=== PATIENT | female | born 1995 | race Caucasian/White ===

== ENCOUNTER → 2017-01-07 | Outpatient (CLI) | payer MEDICAID ==
[~2017-01-07] MED LIST: BIRTH CONTROL PO; FLAGYL500 M1 FT; MACROBID 100MG100 MG PO; MACROBID100 M3 PO; PRENATAL PLUS1 TA1 PO
[2017-01-08 08:40] LABS: Hep B Surface Ab, Qual Non Reactive (.); Rubella Antibodies, IgG 4.03 index (Immune >0.99)
[2017-01-08 12:36] LABS: Mumps Abs, IgG >300.0 AU/mL (Immune >10.9); Varicella Zoster IgG 887 index (Immune >165)
== END ==
LOC: LAB 08:58 → UTC.OUT 08:58
PROVIDERS: Nurse Practitioner
DX: Z01.84 Encounter for antibody response examination (principal); Z11.59 Encounter for screening for other viral diseases

== ENCOUNTER 2017-04-29 17:58 | Emergency (ER) | payer MEDICAID ==
[~2017-04-29] VITALS: Ht 165.1 cm; Wt 86.2 kg
--- OUTSIDE RECORDS SUMMARY | 2017-04-29 18:05 | External Medical Summary Rpt | CCD ---
Author Author Conduent Organization Conduent Address Unknown Phone Unavailable Purpose Continuity of Care Document - through 2016
--- OUTSIDE RECORDS SUMMARY | 2017-04-29 18:05 | External Medical Summary Rpt | CCD ---
Author Author , CORRIE Organization CORRIE Address Unknown Phone [email or web address] Care Team Providers Care Electric Car Operator Name Role Phone Sharyn Calderon MD, Unavailable Unavailable Sharyn Calderon MD Purpose Continuity of Care Document - 10-13-2012 through 2016 Problems Code Diagnosis DOS Provider Status 599.0 599.0 URIN 10-13-2012 [facility] NOS 646.83 646.83 PREG 10-13-2012 [facility] T A59.9 TRICHOMONIA SIS, UNSPECIFIED N39.0 URINARY TRACT INFECTION, SITE NOT SPECIFIED O20.0 THREATENED T16.2XXA FOREIGN BODY IN LEFT EAR, INITIAL ENCOUNTER T16.9XXA FOREIGN BODY IN EAR, UNSPECIFIED EAR, INITIAL ENCOUNTER Z33.1 STATE, INCIDENTAL Z34.90 ENCNTR FOR SUPRVSN OF NORMAL , UNSP, UNSP TRIMESTER Allergies, Adverse Reactions, Alerts Type Drug Allergy Adverse Reaction to Substance Substance Reaction Severity Clindamycin I-HIVES Mild Amoxicillin I-HIVES Mild Clavulanic Acid I-HIVES Mild Medications Na ND Rx Da Fi Fi Am Da Di Ph RX Ph St me C No te ll ll ou ys ag ar # ys at rm s nt no ma ic us Or Da si cy ia de te s n re d Ni 00 05 0 No tr 09 -1 of 32 3- Lo ur 13 20 ng an 19 13 er to 3 in Ac ti 10 ve 0M G Ca ps ul e Vital Signs 10-13-2012 21:10 Name Value Interpretat Reference Comment ion Range Body 98.5 [degF] Temperature BP 59 mm[Hg] Diastolic BP Systolic 112 mm[Hg] Heart 97 /min Rate/Pulse O2% 99 % Respiratory 18 /min Rate 10-13-2012 20:53 Name Value Interpretat Reference Comment ion Range Heart 103 /min Rate/Pulse O2% 100 % Respiratory 22 /min Rate Results Labs Lab Lab Date Result Refere Interp Status Commen Order Detail nces retati t Range on CHLAMYDIA AND GONORRHEA TESTING (11-09-2014 11:30) Chlamyd POSITIV complet ia 015 E ed trachom 11:30 atis rRNA [Presen ce] in Unspeci fied specime n by Probe & target amplifi cation method Neisser NEGATIV complet ia 015 E ed gonorrh 11:30 oeae rRNA [Presen ce] in Unspeci fied specime n by Probe & target amplifi cation method CHLAMYDIA AND GONORRHEA TESTING (11-09-2014 11:30) COLLECT M.F. 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 ETHNICI WHITE, complet TY 015 NON-HIS ed 11:30 PANIC KIT complet EXPIRAT 015 5 ed ION 11:30 DATE SYMPTOM NO complet S 015 ed 11:30 REASON INITIAL complet FOR 015 FAMILY ed REQUEST 11:30 PLANNIN G VISIT SPECIME URINE complet N 015 ed SOURCE 11:30 PREGNAN NO complet T 015 ed 11:30 CHART 627-38- complet NUMBER [id number] ed 11:30 Chlamyd Pending complet ia 015 ed trachom 11:30 atis rRNA [Presen ce] in Unspeci fied specime n by Probe & target amplifi cation method Neisser Pending complet ia 015 ed gonorrh 11:30 oeae rRNA [Presen ce] in Unspeci fied specime n by Probe & target amplifi cation method B-HCG Ur Ql (10-13-2012 20:10) B-HCG POSITIV NEG complet Ur Ql 013 E ed 20:10 URINALYSIS/COMPLETE (10-13-2012 20:10) URINE YELLOW YELLOW complet COLOR 013 ed 20:10 URINE CLEAR CLEAR complet APPEARA 013 ed NCE 20:10 URINE NEGATIV NEG complet GLUCOSE 013 E ed - 20:10 DIPSTIC K URINE 05-13-2 NEGATIV NEG complet BILIRUB 013 E ed IN - 20:10 DIPSTIC K URINE 05-13-2 NEGATIV NEG complet KETONE 013 E mg/dL ed 20:10 URINE 05-13-2 1.010 1.005-1 complet SPECIFI 013 UNK .030 ed C 20:10 GRAVITY URINE 05-13-2 NEGATIV NEG complet BLOOD 013 E ed 20:10 URINE 05-13-2 6.0 UNK 5.0-8.5 complet PH 013 ed 20:10 URINE 05-13-2 NEGATIV NEG complet PROTEIN 013 E mg/dL ed - 20:10 DIPSTIC K URINE 05-13-2 0.2 NEG complet UROBILI 013 E.U./dL ed NOGEN - 20:10 DIPSTIC K URINE 05-13-2 NEGATIV NEG complet NITRATE 013 E ed - 20:10 DIPSTIC K URINE 05-13-2 3+ NEG complet LEUK 013 ed ESTERAS 20:10 E URINE 05-13-2 10-20 O complet WBC 013 wbc/hpf ed 20:10 URINE 05-13-2 3-8 0-5 complet SQUAMOU 013 #/hpf ed S CELLS 20:10 URINE 05-13-2 1+ O complet BACTERI 013 ed A 20:10 Encounters Encounter Start End Date Code Location Performer Type Date Emergency CLARISA Calderon MD (ER) 3 20:26 3 21:12 [facility]
--- OUTSIDE RECORDS SUMMARY | 2017-04-29 18:05 | External Medical Summary Rpt | CCD ---
Author Author , CORRIE Organization CORRIE Address Unknown Phone [email or web address] Care Team Providers Care Tile Molder Hand Name Role Phone Sharyn Calderon MD, Unavailable Unavailable Sharyn Calderon MD Purpose Continuity of Care Document - 10-13-2012 through 2016 Problems Code Diagnosis DOS Provider Status 599.0 599.0 URIN 10-13-2012 [facility] NOS 646.83 646.83 PREG 10-13-2012 [facility] T A59.9 TRICHOMONIA SIS, UNSPECIFIED N39.0 URINARY [...] M.F. 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
--- OUTSIDE RECORDS SUMMARY | 2017-04-29 18:06 | External Medical Summary Rpt | CCD ---
Author Author , CORRIE Mittal CORRIE Address Unknown Phone [email or web address] Immunization Name Date Rout CVX Reac Dose Comm Prov Is Faci e tion ent ider Refu lity Give sed n No 11-2 999 No Vacc 7-20 ine 17 Admi nist ered Tdap 08-2 115 999 Hist [place] No MI , 1-20 oric Adso 17 al rbed Info rmat ion - Sour ce Unsp ecif ied MMR 02-1 3 999 Hist H149 No H149 1-20 oric 15 al Info rmat ion - Sour ce Unsp ecif ied Tdap 01-0 115 999 Hist [place] No MI , 3-20 oric Adso 08 al rbed Info rmat ion - Sour ce Unsp ecif ied DTaP 01-0 107 999 Hist [place] No MI , UF 3-20 oric 07 al Info rmat ion - Sour ce Unsp ecif ied DTaP 08-0 107 999 Hist [place] No MI , UF 4-19 oric 98 al Info rmat ion - Sour ce Unsp ecif ied MMR 08-0 3 999 Hist MI No MI 4-19 oric 98 al Info rmat ion - Sour ce Unsp ecif ied Taurus 08-0 10 999 Hist [place] No MI o-IP 4-19 oric V 98 al Info rmat ion - Sour ce Unsp ecif ied DTaP 09-1 107 999 Hist MI No MI , UF 6-19 oric 95 al Info rmat ion - Sour ce Unsp ecif ied Taurus 09-1 10 999 Hist [place] No MI o-IP 6-19 oric V 95 al Info rmat ion - Sour ce Unsp ecif ied Hib, 09-1 17 999 Hist [place] No MI UF 6-19 oric 95 al Info rmat ion - Sour ce Unsp ecif ied MMR 10-0 3 999 Hist [place] No MI 7-19 oric 94 al Info rmat ion - Sour ce Unsp ecif ied Hep 05-0 8 999 Hist [place] No MI B, 6-19 oric ped/ 94 al adol Info rmat ion - Sour ce Unsp ecif ied DTaP 03-2 107 999 Hist [place] No MI , UF 5- oric 94 al Info rmat ion - Sour ce Unsp ecif ied Taurus 03-2 10 999 Hist [place] No MI o-IP 5-19 oric V 94 al Info rmat ion - Sour ce Unsp ecif ied Hib, 03-2 17 999 Hist [place] No MI UF 5- oric 94 al Info rmat ion - Sour ce Unsp ecif ied Hib, 01-1 17 999 Hist [place] No MI UF 3- oric 94 al Info rmat ion - Sour ce Unsp ecif ied DTaP 01-1 107 999 Hist [place] No MI , UF 3- oric 94 al Info rmat ion - Sour ce Unsp ecif ied [place] 01-1 10 999 Hist MI No MI o-IP 3- oric V 94 al Info rmat ion - Sour ce Unsp ecif ied Taurus 10-1 10 999 Hist [place] No MI o-IP 5- oric V 93 al Info rmat ion - Sour ce Unsp ecif ied Hep 10-1 8 999 Hist MI No MI B, 5- oric ped/ 93 al adol Info rmat ion - Sour ce Unsp ecif ied DTaP 10-1 107 999 Hist [place] No MI , UF 5- oric 93 al Info rmat ion - Sour ce Unsp ecif ied Hib, 10-1 17 999 Hist [place] No MI UF 5- oric 93 al Info rmat ion - Sour ce Unsp ecif ied Hep 08-2 8 999 Hist MI No MI B, 3- oric ped/ 93 al adol Info rmat ion - Sour ce Unsp ecif ied
--- OUTSIDE RECORDS SUMMARY | 2017-04-29 18:06 | External Medical Summary Rpt ---
Author Author CORRIE Jensen, CORRIE [employer] Organization [employer] Address Unknown Phone Unavailable Results CHLAMYDIA AND GONORRHEA TESTING Observa Value Referen Units Interpr Notes Date tion ce etation Range COLLECT M.F. No No No No Nov 09 OR BUI, informa informa informa informa 2015 ASSESSMENT COUNSELOR tion in tion in tion in tion in 11:30 source source source source AM data data data data ETHNICI WHITE, No No No No Nov 09 TY NON-HIS informa informa informa informa 2015 PANIC tion in tion in tion in tion in 11:30 source source source source AM data data data data KIT No No No No Nov 09 EXPIRAT 5 informa informa informa informa 2015 ION tion in tion in tion in tion in 11:30 DATE source source source source AM data data data data SYMPTOM NO No No No No Nov 09 S informa informa informa informa 2015 tion in tion in tion in tion in 11:30 source source source source AM data data data data REASON INITIAL No No No No Nov 09 FOR FAMILY informa informa informa informa 2015 REQUEST tion in tion in tion in tion in 11:30 PLANNIN source source source source AM G VISIT data data data data SPECIME URINE No No No No Nov 09 N informa informa informa informa 2015 SOURCE tion in tion in tion in tion in 11:30 source source source source AM data data data data PREGNAN NO No No No No Nov 09 T informa informa informa informa 2015 tion in tion in tion in tion in 11:30 source source source source AM data data data data CHART 627-38- No No No No Nov 09 NUMBER [id number] informa informa informa informa 2015 tion in tion in tion in tion in 11:30 source source source source AM data data data data Chlamyd POSITIV No No No NEGATIV Khoi 9 ia E informa informa informa E 2015 trachom tion in tion in tion in RESULT= 11:30 atis source source source WITHIN AM rRNA data data data NORMAL [Presen ce] in LIMITSP Unspeci OSITIVE fied specime RESULT= n by Probe & ABNORMA target LEQUIVO ARUNA amplifi RESULT= cation method INDETER MINATEU NSATISF ACTORY RESULT= INVALID Neisser NEGATIV No No No NEGATIV Nov 9 ia E informa informa informa E 2015 gonorrh tion in tion in tion in RESULT= 11:30 oeae source source source WITHIN AM rRNA data data data NORMAL [Presen ce] in LIMITSP Unspeci OSITIVE fied specime RESULT= n by Probe & ABNORMA target LEQUIVO ARUNA amplifi RESULT= cation method INDETER MINATEU NSATISF ACTORY RESULT= INVALID THE APTIMA COMBO 2 ASSAY IS NOT INTENDE D FOR THE EVALUAT ION OF SUSPECT EDSEXUA L ABUSE OR FOR OTHER MEDICO- LEGAL INDICAT IONS. FOR THOSE PATIENT S FORWHOM A FALSE POSITIV E RESULT MAY HAVE ADVERSE PSYCHO- SOCIAL IMPACT, [facility] MMENDS RETESTI NG.\.br \This report contain s patient informa tion that must be protect ed in accorda nce with the Health Insuran ce Portabi lity and Account ability Act. CHLAMYDIA AND GONORRHEA TESTING Observa Value Referen Units Interpr Notes Date tion ce etation Range COLLECT M.F. No No No No Nov 09 OR BUI, informa informa informa informa 2015 ASSESSMENT COUNSELOR tion in tion in tion in tion in 11:30 source source source source AM data data data data ETHNICI WHITE, No No No No Nov 09 TY NON-HIS informa informa informa informa 2015 PANIC tion in tion in tion in tion in 11:30 source source source source AM data data data data KIT No No No No Nov 09 EXPIRAT 5 informa informa informa informa 2015 ION tion in tion in tion in tion in 11:30 DATE source source source source AM data data data data SYMPTOM NO No No No No Nov 09 S informa informa informa informa 2015 tion in tion in tion in tion in 11:30 source source source source AM data data data data REASON INITIAL No No No No Nov 09 FOR FAMILY informa informa informa informa 2015 REQUEST tion in tion in tion in tion in 11:30 PLANNIN source source source source AM G VISIT data data data data SPECIME URINE No No No No Nov 09 N informa informa informa informa 2015 SOURCE tion in tion in tion in tion in 11:30 source source source source AM data data data data PREGNAN NO No No No No Nov 09 T informa informa informa informa 2015 tion in tion in tion in tion in 11:30 source source source source AM data data data data CHART 627-38- No No No No Nov 09 NUMBER [id number] informa informa informa informa 2015 tion in tion in tion in tion in 11:30 source source source source AM data data data data Chlamyd Pending No No No No Nov 09 ia informa informa informa informa 2015 trachom tion in tion in tion in tion in 11:30 atis source source source source AM rRNA data data data data [Presen ce] in Unspeci fied specime n by Probe & target amplifi cation method Neisser Pending No No No \.br\Nov 09 ia informa informa informa is 2015 gonorrh tion in tion in tion in report 11:30 oeae source source source contain AM rRNA data data data s [Presen patient ce] in Unspeci informa fied tion specime that n by must be Probe & target protect ed in amplifi accorda cation nce method with the Health Insuran ce Portabi lity and Account ability Act.
--- OUTSIDE RECORDS SUMMARY | 2017-04-29 18:06 | External Medical Summary Rpt | CCD ---
Author Author , CORRIE Mittal CORRIE Address Unknown Phone [email or web address] Immunization Name Date Rout CVX Reac Dose Comm Prov Is Faci e tion ent ider Refu lity Give sed n No 11-2 999 No Vacc 7-20 ine 17 Admi nist ered Tdap 08-2 115 999 Hist NM No NM , 1-20 oric Adso 17 al rbed Info rmat ion - Sour ce Unsp ecif ied MMR 02-1 3 999 Hist H149 No H149 1-20 oric 15 al Info rmat ion - Sour ce Unsp ecif ied Tdap 01-0 115 999 Hist NM No NM , 3-20 oric Adso 08 al rbed Info rmat ion - Sour ce Unsp ecif ied DTaP 01-0 107 999 Hist NM No NM , UF 3-20 oric 07 al Info rmat ion - Sour ce Unsp ecif ied DTaP 08-0 107 999 Hist [place] No NM , UF 4-19 oric 98 al Info rmat ion - Sour ce Unsp ecif ied MMR 08-0 3 999 Hist NM No NM 4-19 oric 98 al Info rmat ion - Sour ce Unsp ecif ied [place]aurus 08-0 10 999 Hist NM No NM o-IP 4-19 oric V 98 al Info rmat ion - Sour ce Unsp ecif ied DTaP 09-1 107 999 Hist NM No NM , UF 6-19 oric 95 al Info rmat ion - Sour ce Unsp ecif ied [place] 09-1 10 999 Hist NM No NM o-IP 6-19 oric V 95 al Info rmat ion - Sour ce Unsp ecif ied Hib, 09-1 17 999 Hist [place] No NM UF 6-19 oric 95 al Info rmat ion - Sour ce Unsp ecif ied MMR 10-0 3 999 Hist NM No NM 7-19 oric 94 al Info rmat ion - Sour ce Unsp ecif ied Hep 05-0 8 999 Hist NM No NM B, 6-19 oric ped/ 94 al adol Info rmat ion - Sour ce Unsp ecif ied DTaP 03-2 107 999 Hist NM No NM , UF 5- oric 94 al Info rmat ion - Sour ce Unsp ecif ied Taurus 03-2 10 999 Hist NM No NM o-IP 5-19 oric V 94 al Info rmat ion - Sour ce Unsp ecif ied Hib, 03-2 17 999 Hist NM No NM UF 5- oric 94 al Info rmat ion - Sour ce Unsp ecif ied Hib, 01-1 17 999 Hist NM No NM UF 3- oric 94 al Info rmat ion - Sour ce Unsp ecif ied DTaP 01-1 107 999 Hist NM No NM , UF 3- oric 94 al Info rmat ion - Sour ce Unsp ecif ied [place] 01-1 10 999 Hist NM No NM o-IP 3- oric V 94 al Info rmat ion - Sour ce Unsp ecif ied Taurus 10-1 10 999 Hist NM No NM o-IP 5- oric V 93 al Info rmat ion - Sour ce Unsp ecif ied Hep 10-1 8 999 Hist NM No NM B, 5- oric ped/ 93 al adol Info rmat ion - Sour ce Unsp ecif ied DTaP 10-1 107 999 Hist NM No NM , UF 5- oric 93 al Info rmat ion - Sour ce Unsp ecif ied Hib, 10-1 17 999 Hist NM No NM UF 5- oric 93 al Info rmat ion - Sour ce Unsp ecif ied Hep 08-2 8 999 Hist NM No NM B, 3- oric ped/ 93 al adol Info rmat ion - Sour ce Unsp ecif ied
--- OUTSIDE RECORDS SUMMARY | 2017-04-29 18:06 | External Medical Summary Rpt ---
Author Author CORRIE Jensen, CORRIE [employer] Organization [employer] Address Unknown Phone Unavailable Results CHLAMYDIA AND GONORRHEA TESTING Observa Value Referen Units Interpr Notes Date tion ce etation Range COLLECT M.F. 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 CHLAMYDIA AND GONORRHEA TESTING Observa Value Referen Units Interpr Notes Date tion ce etation Range COLLECT M.F. No No No No Nov 09 OR BUI, informa informa informa informa 2015 DIRECTOR OF RESIDENCE LIFE tion in tion in tion in tion [...]
--- NOTE | 2017-04-29 18:47 | Urgent Treatment Center Report ---
History of Present Issue Date/Time Seen by Provider 04/29/17 3164 Visit Reason Pt arrived:Walked Presenting Problem:PT C/O OF SORE THROAT AND COUGH Location if Accident: Onset of symptoms date/time:/ or onset unknown for:MEDICAL HX UNKNOWN Have you (or family members/close friends) recently traveled outside the [place]? N If Yes, where/when: Have you had exposure to infectious disease within the past month? TB? Other? Specify: Patient states that she has not felt well for several days State that she has been having sore throat and cough States that earlier today she began to loose her voice State that her throat feels raw and irritated States that when she swallows it feels like she is swallowing razor blades ALLERGIES Coded Allergies: clavulanic acid (From AUGMENTIN) (Intermediate, I-HIVES 08/31/16) clindamycin (Intermediate, I-HIVES 08/31/16) Home Medications Reported Medications [ CONTROL] 1 TABLET PO DAILY History Medical History General CAD? No Angina: No MN: No Hypertension? No Hyperlipidemia? No CHF? No DVT? No PE? No COPD? No Asthma? No Anemia? No GERD? No Gastric ulcers? No GI Bleed? No Hernia? No Thyroid Problems? No Hypothyroidism? No CVA? No Seizures? No Diabetes? No Renal Insuffiency? No UTI? No Stones? No BPH? No GB Disease: No Nephritic Syndrome? No Asplenia? No Hepatitis? No Sickle Cell Disease? No Arthritis? No Migraines? No Cataracts? No Glaucoma? No MRSA? Yes HIV? No TB? No Anxiety? No Depression? No Cancer? No More? 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 Respiratory cough, denies shortness of breath, denies wheezing Physical Exam Vital Signs Vital Signs Date Time Temp Pulse Resp B/P Pulse O2 O2 Flow FiO2 Ox Delivery Rate 04/29 1811 98.4 92 20 124/84 99 General Appearance normal appearance, WD/WN, no apparent distress Ear, Nose, Throat Throat red irritated drainage noted Respiratory Status Yes: trachea midline, chest symmetrical, non tender chest. No: respiratory distress. Cardiovascular normal exam, regular rate/rhythm, no peripheral edema Neurologic alert, normal exam, oriented x 3 Medical Decision Making LABS/Meds/Orders Pt receiving controlled substance in ED? No Results/Orders Laboratory Tests 04/29/171812: Group A Strep Screen NOT DETECTED Current Medication Orders Sig/Keira Start time Last Medication Dose Route Stop Time Status Admin Ceftriaxone Sodium 1 GM ONCE ONE 04/29 1915 AC IM 04/29 1916 Lidocaine HCl 0 ONCE ONE 04/29 1915 AC IM 04/29 1916 Methylprednisolone 125 MG ONCE ONE 04/29 1915 AC Sodium Succinate IM 04/29 1916 Ceftriaxone Sodium 0 .STK-MED ONE 04/29 1908 DC .ROUTE Lidocaine HCl 0 .STK-MED ONE 04/29 1908 DC .ROUTE Methylprednisolone 0 .STK-MED ONE 04/29 1908 DC Sodium Succinate .ROUTE Orders Procedure Date/time Status [facility] STREP SCREEN 04/29 1813 Complete Departure Departure Time of Disposition 1908 Disposition DC Home or Self Care(routine) Clinical Impression Primary Impression: Upper respiratory infection Qualifiers: URI type: unspecified URI Qualified Code: J06.9 - Acute upper respiratory infection, unspecified Condition STABLE Patient Instructions Cough, DI for Cough -- Adult, Sore Throat Additional Instructions * Monitor Temp. Tylenol and/or Ibuprofen as needed. ER if fever is no less than 101 despite alternating Tylenol and Ibuprofen * Encourage fluids, water, Gatorade, powerade, pedialyte if infant/toddler/or child * Warm salt water gargles for throat irritation *Warm fluids *Sore throat lozenges *Sleep elevated *humidifier or vaporizer Lots of rest Increase fluids, water, Gatorade, powerade *Flonase 2 sprays each nostril daily but may take 2-3 days to notice improvement with it *Bromfed may cause drowsiness. Know how it effect you or your child. Before driving, caring for small children or sending your child to school *Your throat swab was sent to lab for culture. Those results area typically sent to your primary care physician. Be sure to follow up in 2-3 days if no improvement so they can review those results and treat if necessary If you dont have primary care I recommend you get one, but in the mean time you will have to return to a walk in clinic Follow up IMMEDIATELY for new or worsening of symptoms OR no noticeable improvement over the next 48-72 hours. 911 immediately for any life threatening symptoms such as chest pain or difficulty breathing Discharge Counseling Counseled pt/family regarding diagnosis, test results, medications/RX, home care, follow up needs Prescriptions Current Visit Scripts D-METHORPHAN HB/P-EPD HCL/BPM (Bromfed Dm Cough Syrup) 10 ML PO Q4HP PRN cough #120 SYR Fluticasone Propionate (Flonase 50 Mcg Nasal [place]) 2 SPRAY NA DAILY #1 BOT at 1911
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
[2017-04-29] MEDS ORDERED: FLONASE 50 MCG16 GM (19:11)
[2017-04-29] MEDS ORDERED: BROMFED DM COU118 ML PO (19:11)
[2017-04-29 19:23] VITALS: BP 124/80
== END 2017-04-29 19:23 | disposition home or self-care (01) ==
LOC: UTC 17:58
DX: J06.9 Acute upper respiratory infection, unspecified (principal); Z88.1 Allergy status to other antibiotic agents